=== PATIENT | female | born 1935 | race Caucasian/White ===

== ENCOUNTER 2017-11-14 11:42 | Emergency (ER) | payer MEDICARE, BC ==
[~2017-11-14] VITALS: Ht 165.1 cm; Wt 86.2 kg
[~2017-11-14 11:42] MED LIST: ASPI81EC PO; HYDCHL25 PO; Hydrochlorothia25 MG PO; LEVSOD25 PO; LEVSOD50; LISI20 PO; MAGOXI400 PO; MULVITMIND PO; NADO20 PO; OMEP20ER PO; POTCHL10ER PO; Procrit2000 UNIT/ IJ; SIMV10 PO; Ultram50 MG PO
[2017-11-14] MEDS ORDERED: AMLO5 PO (12:33)
[2017-11-14] MEDS ORDERED: Dyazide 37.5-21 EACH PO (12:34)
[2017-11-14 12:41] LABS: BASOPHILS ABSOLUTE AUTO 0.02 K/mm3 (0.00-0.23); BASOPHILS PERCENT AUTO 0 % (0-2); EOSINOPHILS ABSOLUTE AUTO 0.21 K/mm3 (0.00-0.68); EOSINOPHILS PERCENT AUTO 4 % (0-6); Hematocrit 33.4 % (33.0-51.0); IMMATURE GRAN ABSOLUTE AUTO 0.04 K/mm3 (0.00-0.10); IMMATURE GRAN PERCENT AUTO 1 % (0-1); LYMPHOCYTES ABSOLUTE AUTO 1.03 K/mm3 (0.84-5.20); LYMPHOCYTES PERCENT AUTO 18 % (21-46); MONOCYTES ABSOLUTE AUTO 0.61 K/mm3 (0.16-1.47); MONOCYTES PERCENT AUTO 10 % (4-13); Mean Corpuscular HGB Conc 35.9 g/dL (31.5-36.5); Mean Corpuscular Volume 97 fL (80-100); Mean Platelet Volume 10.3 fL (9.1-12.4); NEUTROPHILS ABSOLUTE AUTO 3.95 K/mm3 (1.96-9.15); NEUTROPHILS PERCENT AUTO 67 % (41-73); Platelet Count 53 K/mm3 (150-400); RDW Coefficient Variation 12.5 % (11.7-14.2); RDW Standard Deviation 44.9 fL (35.1-46.3); Red Blood Cell Count 3.43 M/mm3 (3.80-5.20); White Blood Cell Count 5.86 K/mm3 (4.00-11.30)
[2017-11-14 12:51] LABS: Alanine Aminotransfer (ALT/SGP 14 U/L (12-78); Albumin/Globulin Ratio 0.8 (0.8-1.8); Alk Phos 90 U/L (50-136); Anion Gap 7 mmol/L (6-16); Aspartate Aminotrans (AST/SGOT 22 U/L (12-37); Bilirubin, Total 2.2 mg/dL (0.1-1.0); Blood Urea Nitrogen 21 mg/dL (8-24); Bun/Creatinine Ratio 27.9 (12.0-20.0); CO2, Blood 28 mmol/L (21-32); Calcium, Blood 8.6 mg/dL (8.5-10.1); Chloride, Blood 103 mmol/L (98-108); Creatinine, Blood 0.75 mg/dL (0.40-1.00); Globulin, Blood 3.8 g/dL (2.2-4.0); Glomerular Filtration Rate >60 (60-); Glucose, Blood 111 mg/dL (70-99); Potassium, Blood 3.5 mmol/L (3.5-5.5); Sodium, Blood 138 mmol/L (136-145); Total Protein, Blood 6.8 g/dL (6.4-8.2)
== END 2017-11-14 14:00 | disposition home or self-care (01) ==
LOC: ER 11:42
PROVIDERS: Physician Assistant
DX: J40 Bronchitis, not specified as acute or chronic (principal); I10 Essential (primary) hypertension; E11.9 Type 2 diabetes mellitus without complications; Z88.5 Allergy status to narcotic agent; Z88.8 Allergy status to other drugs, medicaments and biological substances; Z79.899 Other long term (current) drug therapy
CPT/HCPCS: 36415; 71046; 80053; 85025; 93005; 93010; 99283

== ENCOUNTER 2019-04-26 15:37 | Inpatient (IN) | payer MEDICARE, BC ==
[~2019-04-26] VITALS: Ht 165.1 cm; Wt 107.8 kg
[~2019-04-26 15:37] MED LIST changes: +AMLO5 PO; +Dyazide 37.5-21 EACH PO
[2019-04-26] MEDS ORDERED: RIFA550T2 (16:01)
[2019-04-26] MEDS ORDERED: MYRBETRIQ25 MG PO (16:01)
[2019-04-26] MEDS ORDERED: TOLT4 PO (16:02)
[2019-04-26] MEDS ORDERED: Omega-31000 MG PO (16:02)
[2019-04-26 16:16] LABS: BASOPHILS ABSOLUTE AUTO 0.02 K/mm3 (0.00-0.23); BASOPHILS PERCENT AUTO 0 % (0-2); EOSINOPHILS ABSOLUTE AUTO 0.07 K/mm3 (0.00-0.68); EOSINOPHILS PERCENT AUTO 1 % (0-6); Hemoglobin 12.5 g/dL (11.5-16.0); IMMATURE GRAN ABSOLUTE AUTO 0.03 K/mm3 (0.00-0.10); IMMATURE GRAN PERCENT AUTO 1 % (0-1); LYMPHOCYTES ABSOLUTE AUTO 0.66 K/mm3 (0.84-5.20); LYMPHOCYTES PERCENT AUTO 10 % (21-46); MONOCYTES ABSOLUTE AUTO 0.48 K/mm3 (0.16-1.47); MONOCYTES PERCENT AUTO 8 % (4-13); Mean Corpuscular HGB Conc 35.7 g/dL (31.5-36.5); Mean Corpuscular Volume 101 fL (80-100); Mean Platelet Volume 10.6 fL (9.1-12.4); NEUTROPHILS ABSOLUTE AUTO 5.08 K/mm3 (1.96-9.15); NEUTROPHILS PERCENT AUTO 80 % (41-73); Platelet Count 51 K/mm3 (150-400); RDW Coefficient Variation 12.7 % (11.7-14.2); RDW Standard Deviation 46.5 fL (35.1-46.3); Red Blood Cell Count 3.47 M/mm3 (3.80-5.20); White Blood Cell Count 6.34 K/mm3 (4.00-11.30)
[2019-04-26 16:35] LABS: Alanine Aminotransfer (ALT/SGP 14 U/L (12-78); Albumin, Blood 3.1 g/dL (3.4-5.0); Albumin/Globulin Ratio 0.9 (0.8-1.8); Alk Phos 96 U/L (50-136); Anion Gap 6 mmol/L (6-16); Aspartate Aminotrans (AST/SGOT 44 U/L (12-37); Blood Urea Nitrogen 13 mg/dL (8-24); Bun/Creatinine Ratio 16.3 (12.0-20.0); CO2, Blood 24 mmol/L (21-32); Calcium, Blood 9.2 mg/dL (8.5-10.1); Chloride, Blood 108 mmol/L (98-108); Globulin, Blood 3.6 g/dL (2.2-4.0); Glomerular Filtration Rate >60 (60-); Glucose, Blood 142 mg/dL (70-99); Potassium, Blood 3.7 mmol/L (3.5-5.5); Sodium, Blood 138 mmol/L (136-145); Total Protein, Blood 6.7 g/dL (6.4-8.2)
[2019-04-26 17:15] LABS: International Normalized Ratio 1.17; Prothrombin Time Results 12.2 Sec (9.7-11.5)
[2019-04-26 17:52] LABS: Source, Urine Clean Catch
[2019-04-26 17:55] LABS: Bilirubin, Urine Neg (Neg); Blood, Urine 4+ (Neg); Glucose Qualitative, Urine Neg (Neg); Ketones, Urine Neg (Neg); Leukocyte Esterase, Urine 3+ (Neg); Nitrite, Urine Pos (Neg); Protein, Urine 1+ (Neg); Specific Gravity, Urine 1.005 (1.003-1.022); Urobilinogen, Urine NORM (Normal)
[2019-04-26 18:05] LABS: Appearance, Urine Hazy (Clear); Color, Urine Yellow (P-Yellow)
[2019-04-26 18:23] LABS: Bacteria Many /hpf; Red Blood Cells, Urine 25-50 /hpf (0-2); Squamous Epithelial Cells Few /hpf (Few); White Blood Cells, Urine TNTC /hpf (0-5)
[2019-04-26] MEDS ORDERED: THERA1 EACH PO (22:56)
[2019-04-26] MEDS ORDERED: Gas Relief80 MG PO (22:57)
--- NOTE | 2019-04-27 04:42 | NUR ---
SHIFT SUMMARY PT ER ADMIT THIS SHIFT FOR UTI. PT A/OX4, PLESANT AND COOPERATIVE. ADMISSION COMPLETE WITH PT SON AT BEDSIDE, PT ABLE TO ANSWER MOST QUESTIONS REGARDING HER HISTORY. MEDICATION RECONCILIATION MOSTLY COMPLETE. PT SON WOULD LIKE TO BRING HER PILL BOTTLES TOMORROW TO VERIFY THAT THE DOSAGES ON SOME OF THE MEDICATIONS ON HER REC ARE CORRECT. WILL NOTIFY DAY RN FOR FOLLOW UP. PT HAS RECEIVED IV ROCEPHIN IN THE ER, SHE IS RECEIVING FLUIDS AT 75 ML/HR AT THIS TIME. PT UP WITH 1 PA TO BATHROOM, BUT HAS A SLOW UNSTEADY GAIT. PT DENIES PAIN. RESTFUL NIGHT. WILL CONTINUE TO MONITOR AND REPORT TO ONCOMING RN.
[2019-04-27 05:23] LABS: BASOPHILS ABSOLUTE AUTO 0.01 K/mm3 (0.00-0.23); BASOPHILS PERCENT AUTO 0 % (0-2); EOSINOPHILS ABSOLUTE AUTO 0.07 K/mm3 (0.00-0.68); EOSINOPHILS PERCENT AUTO 2 % (0-6); Hematocrit 29.1 % (33.0-51.0); Hemoglobin 10.2 g/dL (11.5-16.0); IMMATURE GRAN ABSOLUTE AUTO 0.02 K/mm3 (0.00-0.10); IMMATURE GRAN PERCENT AUTO 0 % (0-1); LYMPHOCYTES PERCENT AUTO 17 % (21-46); MONOCYTES ABSOLUTE AUTO 0.47 K/mm3 (0.16-1.47); MONOCYTES PERCENT AUTO 10 % (4-13); Mean Corpuscular HGB 34.6 pg (26.0-34.0); Mean Corpuscular HGB Conc 35.1 g/dL (31.5-36.5); Mean Corpuscular Volume 99 fL (80-100); Mean Platelet Volume 11.1 fL (9.1-12.4); NEUTROPHILS ABSOLUTE AUTO 3.27 K/mm3 (1.96-9.15); NEUTROPHILS PERCENT AUTO 71 % (41-73); RDW Coefficient Variation 12.9 % (11.7-14.2); RDW Standard Deviation 45.8 fL (35.1-46.3); Red Blood Cell Count 2.95 M/mm3 (3.80-5.20); White Blood Cell Count 4.64 K/mm3 (4.00-11.30)
[2019-04-27 05:30] LABS: Platelet Count 42 K/mm3 (150-400)
[2019-04-27 05:34] LABS: International Normalized Ratio 1.28; Prothrombin Time Results 13.3 Sec (9.7-11.5)
[2019-04-27 05:37] LABS: Magnesium, Blood 1.5 mg/dL (1.6-2.4)
[2019-04-27 05:38] LABS: Alanine Aminotransfer (ALT/SGP 15 U/L (12-78); Albumin, Blood 2.6 g/dL (3.4-5.0); Albumin/Globulin Ratio 0.8 (0.8-1.8); Alk Phos 78 U/L (50-136); Anion Gap 8 mmol/L (6-16); Aspartate Aminotrans (AST/SGOT 34 U/L (12-37); Bilirubin, Total 1.8 mg/dL (0.1-1.0); Blood Urea Nitrogen 13 mg/dL (8-24); Bun/Creatinine Ratio 17.5 (12.0-20.0); CO2, Blood 25 mmol/L (21-32); Calcium, Blood 8.3 mg/dL (8.5-10.1); Chloride, Blood 110 mmol/L (98-108); Creatinine, Blood 0.74 mg/dL (0.40-1.00); Globulin, Blood 3.2 g/dL (2.2-4.0); Glomerular Filtration Rate >60 (60-); Glucose, Blood 193 mg/dL (70-99); Sodium, Blood 143 mmol/L (136-145); Total Protein, Blood 5.8 g/dL (6.4-8.2)
[2019-04-27] MEDS ORDERED: Dyazide 37.5-21 EACH PO (10:11)
[2019-04-27] MEDS ORDERED: Magnesium500 M1 PO (10:14)
--- NOTE | 2019-04-27 10:56 | NUR ---
IV CLARIFICATION RIGHT IV IS IN THE AC NOT THE WRIST
--- NOTE | 2019-04-27 16:30 | NUR ---
PT IS A/OX3, PLEASANT AND COOPERATIVE, THE PT IS UP WITH MINIMAL ASSIST TO THE BSC AND TO [facility], TODAY THE PT AMBULATED OUT INTO THE SORTO WITH THE PHYSICAL THERAPIST, USEING THE FWW APPROPIATLY, THE PT DENIED ANY PAIN T/O THE SHIFT, THE PTS SON WAS AT THE BEDSIDE FOR MOST OF THE DAY, THE PT WAS UP INTO THE CHAIR FOR BREAKFAST, CALL LIGHT IN REACH, BED ALARM ON , WILL CONTINUE TO MONITOR AND ASSESS FOR CHANGES
--- NOTE | 2019-04-28 04:36 | NUR ---
AOx3. 96% on RA. No c/o pain or nausea. No calls from tele, sinus kindra/1st degree HB. L FA IV is SL, R AC IV has NS infusing @ 75ml/hr. Awaiting culture results. 1 assist to BSC, tolerates well. Q2 repo, but pt repos herself and is up to the bathroom frequently. SCDs off for the night b/c pt couldn't sleep. VSS. Pt hopes to return home today.
[2019-04-28 05:18] LABS: Hematocrit 31.6 % (33.0-51.0); Hemoglobin 11.2 g/dL (11.5-16.0); Mean Corpuscular HGB 35.7 pg (26.0-34.0); Mean Corpuscular HGB Conc 35.4 g/dL (31.5-36.5); Mean Corpuscular Volume 101 fL (80-100); Mean Platelet Volume 10.8 fL (9.1-12.4); RDW Coefficient Variation 12.9 % (11.7-14.2); RDW Standard Deviation 47.6 fL (35.1-46.3); Red Blood Cell Count 3.14 M/mm3 (3.80-5.20); White Blood Cell Count 4.22 K/mm3 (4.00-11.30)
[2019-04-28 05:22] LABS: Platelet Count 46 K/mm3 (150-400)
[2019-04-28 05:40] LABS: Anion Gap 6 mmol/L (6-16); Blood Urea Nitrogen 12 mg/dL (8-24); Bun/Creatinine Ratio 16.8 (12.0-20.0); CO2, Blood 25 mmol/L (21-32); Calcium, Blood 8.6 mg/dL (8.5-10.1); Chloride, Blood 114 mmol/L (98-108); Creatinine, Blood 0.71 mg/dL (0.40-1.00); Glomerular Filtration Rate >60 (60-); Glucose, Blood 131 mg/dL (70-99); Magnesium, Blood 1.6 mg/dL (1.6-2.4); Potassium, Blood 3.7 mmol/L (3.5-5.5); Sodium, Blood 145 mmol/L (136-145)
--- NOTE | 2019-04-28 16:43 | NUR ---
SHIFT SUMMARY PT WAS RESTING QUIETLY, FOWLERS, DURING SHIFT REPORT. IVF'S INFUSING TO RAC; FREQUENTLY OCCLUDING. RAC WRAPPED WITH CLOTH TO STABLIZE, WHICH HELPED UNTIL EATING BREAKFAST. DR LYNCH IN TO SEE PT, NEW ORDERS RECEIVED. PT'S SON COME IN LATER TO SEE PT, DR LYNCH NOTIFIED AND RETURNED TO . UPDATE GIVEN TO PT'S SON, WHO IS CAREGIVER WHEN PT AT HOME. PT IS FORGETFUL AT TIMES, BUT PLEASANT. PT ASSISTED UP TO BTHRM FOR SHOWER. YEAST FOUND IN ABD SKIN FOLDS. SKIN CLEANED. DR LYNCH NOTIFIED FOR NYSTATIN. PT ASSISTED BACK INTO BED. RESTING QUIETLY AT THIS TIME. NO C/O. CALL LT IN REACH. BED ALARM ON FOR SAFETY.
--- NOTE | 2019-04-29 04:03 | NUR ---
SHIFT SUMMARY PT ADMITTED WITH UTI. PT WITH CRITICAL PLATELET COUNT OF 46 YESTERDAY. DNR. ADA DIET. TELE-NSR WITH OCCATIONS PVC AT A RATE OF 66 PER GEAR HOBBER SET UP OPERATOR. 20G IV TO R AC. TAKES MEDICATIONS WHOLE. 1 PERSON ASSIST WITH TRANSFERS AND IS ABLE TO WALK TO THE BR. PT WITH REDNESS AND FOUL ODOR NOTED TO ABD FOLDS, NYSTATIN POWDER APPLIED. THE PTS SON WAS IN ROOM WITH PT UNTIL JOHN. SON STATED THAT THE PT APPEARED TO GET VERY CONFUSED SO HE DECIDED TO STAY LONGER. THIS NURSE ENTERED ROOM AND PT APPEARED TO HAVE SOME MILD INTERMITTENT FORGETFULNESS BUT DID NOT APPEAR CONFUSED. AFTER SON LEFT, PT WENT TO SLEEP AND APPEARS TO HAVE ONLY WOKE X1 TO VOID. PT DID SET OFF BED ALARM SO NOT APPEAR TO USE CALL LIGHT APPROPRIATELY. PT APPEARS TO BE SLEEPING COMFORTABLY AT THIS TIME WITH NO APPARENT SIGNS OF ACUTE DISTRESS. BED ALARM FOR SAFETY.
[2019-04-29 04:51] LABS: Anion Gap 7 mmol/L (6-16); Blood Urea Nitrogen 13 mg/dL (8-24); Bun/Creatinine Ratio 18.7 (12.0-20.0); CO2, Blood 25 mmol/L (21-32); Calcium, Blood 8.8 mg/dL (8.5-10.1); Chloride, Blood 110 mmol/L (98-108); Creatinine, Blood 0.69 mg/dL (0.40-1.00); Glomerular Filtration Rate >60 (60-); Glucose, Blood 115 mg/dL (70-99); Magnesium, Blood 1.5 mg/dL (1.6-2.4); Potassium, Blood 3.7 mmol/L (3.5-5.5); Sodium, Blood 142 mmol/L (136-145)
[2019-04-29] MEDS ORDERED: LEVFLO500 PO (10:15)
--- NOTE | 2019-04-29 10:52 | NUR ---
PT DISCHAREGED THE PT AND HER SON VERBALIZED UNDERSTANDING OF THE DC INSTRUCTIONS, PRESCRIPTION FAXED TO [facility] REQUESTED, THE PT WAS TRANSFERED VIA WHEELCHAIR ACCOMPANIED BY THE BUSINESS AND FINANCIAL COUNSEL AND HER SON, THE PT APPEARED TO BE BREATHING EASILY ON RA
== END 2019-04-29 10:53 | disposition home or self-care (01) | DRG 689 ==
LOC: ER 15:37 → MEDS 21:30
PROVIDERS: Emergency Medicine; Internal Medicine; Nurse Practitioner Acute Care; ADMIT Internal Medicine
DX: N39.0 Urinary tract infection, site not specified (principal); G92 Toxic encephalopathy; E11.9 Type 2 diabetes mellitus without complications; I10 Essential (primary) hypertension; E87.6 Hypokalemia; E83.42 Hypomagnesemia; D69.6 Thrombocytopenia, unspecified; K75.81 Nonalcoholic steatohepatitis (NASH); E03.9 Hypothyroidism, unspecified; K74.60 Unspecified cirrhosis of liver; K21.9 Gastro-esophageal reflux disease without esophagitis; Z68.33 Body mass index [BMI] 33.0-33.9, adult; Z85.038 Personal history of other malignant neoplasm of large intestine; Z66 Do not resuscitate; E66.01 Morbid (severe) obesity due to excess calories; B95.61 Methicillin susceptible Staphylococcus aureus infection as the cause of diseases classified elsewhere
CPT/HCPCS: 36415; 80048; 80053; 81001; 82140; 83690; 83735; 84443; 85025; 85027; 85610; 87040; 87077; 87086; 87186; 93005; 93010; 96361; 96365; 97110; 97116; 97162; 97165; 97530; 99285-25; J0360; J0696; J3370; J7030; J7050

== ENCOUNTER 2019-07-20 04:09 | Inpatient (IN) | payer MEDICARE, BC ==
[~2019-07-20] VITALS: Ht 165.1 cm; Wt 106.1 kg
[~2019-07-20 04:09] MED LIST changes: +Gas Relief80 MG PO; +LEVFLO500 PO; +MYRBETRIQ25 MG PO; +Magnesium500 M1 PO; +Omega-31000 MG PO; +RIFA550T2; +THERA1 EACH PO; +TOLT4 PO
[2019-07-20] MEDS ORDERED: Alprazolam1 MG PO (04:29)
[2019-07-20 04:50] LABS: Source, Urine Catheter
[2019-07-20 04:55] LABS: Appearance, Urine Hazy (Clear); Bilirubin, Urine Neg (Neg); Blood, Urine 2+ (Neg); Color, Urine Yellow (P-Yellow); Glucose Qualitative, Urine Neg (Neg); Ketones, Urine Neg (Neg); Leukocyte Esterase, Urine 3+ (Neg); Nitrite, Urine Neg (Neg); Protein, Urine 1+ (Neg); Urobilinogen, Urine NORM (Normal); pH, Urine 6.5 (5.0-8.0)
[2019-07-20 05:05] LABS: Bacteria Many /hpf; Squamous Epithelial Cells Rare /hpf (Few); White Blood Cells, Urine TNTC /hpf (0-5)
[2019-07-20 06:15] LABS: BASOPHILS ABSOLUTE AUTO 0.02 K/mm3 (0.00-0.23); BASOPHILS PERCENT AUTO 0 % (0-2); EOSINOPHILS ABSOLUTE AUTO 0.16 K/mm3 (0.00-0.68); EOSINOPHILS PERCENT AUTO 2 % (0-6); Hematocrit 34.9 % (33.0-51.0); Hemoglobin 12.4 g/dL (11.5-16.0); IMMATURE GRAN ABSOLUTE AUTO 0.04 K/mm3 (0.00-0.10); IMMATURE GRAN PERCENT AUTO 1 % (0-1); LYMPHOCYTES ABSOLUTE AUTO 0.75 K/mm3 (0.84-5.20); LYMPHOCYTES PERCENT AUTO 11 % (21-46); MONOCYTES ABSOLUTE AUTO 0.51 K/mm3 (0.16-1.47); MONOCYTES PERCENT AUTO 8 % (4-13); Mean Corpuscular HGB 35.8 pg (26.0-34.0); Mean Corpuscular HGB Conc 35.5 g/dL (31.5-36.5); Mean Corpuscular Volume 101 fL (80-100); Mean Platelet Volume 10.6 fL (9.1-12.4); NEUTROPHILS ABSOLUTE AUTO 5.13 K/mm3 (1.96-9.15); NEUTROPHILS PERCENT AUTO 78 % (41-73); Platelet Count 60 K/mm3 (150-400); RDW Coefficient Variation 12.9 % (11.7-14.2); RDW Standard Deviation 47.3 fL (35.1-46.3); Red Blood Cell Count 3.46 M/mm3 (3.80-5.20); White Blood Cell Count 6.61 K/mm3 (4.00-11.30)
[2019-07-20 06:35] LABS: Alanine Aminotransfer (ALT/SGP 16 U/L (12-78); Albumin, Blood 3.4 g/dL (3.4-5.0); Albumin/Globulin Ratio 0.8 (0.8-1.8); Alk Phos 106 U/L (50-136); Anion Gap 7 mmol/L (6-16); Aspartate Aminotrans (AST/SGOT 34 U/L (12-37); Bilirubin, Total 1.8 mg/dL (0.1-1.0); Blood Urea Nitrogen 25 mg/dL (8-24); Bun/Creatinine Ratio 23.8 (12.0-20.0); CO2, Blood 26 mmol/L (21-32); Calcium, Blood 9.5 mg/dL (8.5-10.1); Chloride, Blood 110 mmol/L (98-108); Creatinine, Blood 1.05 mg/dL (0.40-1.00); Glomerular Filtration Rate 53 (60-); Glucose, Blood 140 mg/dL (70-99); Magnesium, Blood 1.6 mg/dL (1.6-2.4); Potassium, Blood 3.7 mmol/L (3.5-5.5); Sodium, Blood 143 mmol/L (136-145); Total Protein, Blood 7.4 g/dL (6.4-8.2); Troponin I <0.015 ng/mL (0.000-0.040)
--- NOTE | 2019-07-20 17:57 | NUR ---
SHIFT SUMMARY ED ADMIT AT LUNCHTIME TODAY. PATIENT SETTLED INTO ROOM. PATIENT PLEASANTLY CONFUSED. DENIES PAIN, NAUSEA, AND SHORTNESS OF BREATH. PATIENT UP IN RECLINER THIS AFTERNOON. PT WORKED WITH PATIENT, PATIENT UP ONE ASSIST W/GAIT BELT AND FWW. PATIENT NEEDS FREQUENT PROMPTING. CALL LIGHT IN REACH.
--- NOTE | 2019-07-20 23:07 | NUR ---
PATIENT CONFUSED AND PULLED PIV. NEW PIV PLACED AND NS AT 100mL/HR RESTARTED.
--- NOTE | 2019-07-20 23:09 | NUR ---
PATIENT BED ALARM ACTIVATED X TWO. SWINGING LEGS OFF SIDE OF BED. PATIENT REPORTS SHE DOESN'T KNOW WHY. PATIENT BACK INTO BED AND ALARM ACTIVATED.
--- NOTE | 2019-07-21 00:02 | NUR ---
BEGINNING SHIFT SUMMARY ASSUMED CARE OF PT AT 1900. PT SITTING IN CHAIR WATCHING TV WITH HER SON. PT IS ALERT TO FAMILY, PT IS CONFUSED, PT PULLED OUT HER IV AT 1030 AND CONTINUOUSLY TRIES TO GET OUT OF BED. HEART SONDS REGULAR, PERIPHERAL PULSES STRONG, NEW IV IN HER L HAND, INF NS @100ML/HR. FIN INSPIRATORY CRACKLES BLL LUNGS, DENIES SOB, RA. BOWEL TONES HYPERACTIVE, NONTENDER, PT HAS URINARY URGENCY AND FREGUENCY, PT USES THE BED SIDE COMMODE FOR SAFETY WITH FFW AND GAITBELT. GROIN AREA IS REDDENED, HOSPITALIST CALLED AND NYASTATIN CREAM WAS ORDERED. PT SON IN VERY INVOLVED WITH THE PTS CARE, PHONE NUMBER ON THE BOARD. CALL LIGHT IN REACH, BED IN LOWEST POSTION, BED ALARM ON, WILL CONTINUE TO MONITOR.
--- NOTE | 2019-07-21 02:54 | NUR ---
PATIENT BED EXIT ALARM. PATIENT CONFUSED WITH FEET HANGING OUT OF BED. PATIENT REPORTS SHE DOES NOT KNOW WHY AND DOES NOT NEED TO USE BSC. PATIENT ORIENTED AND REPOSITIONED BACK INTO BED.
--- NOTE | 2019-07-21 03:02 | NUR ---
BED EXIT ALARM WITH FEET HANGING OFF BED. PATIENT CONFUSED AND UNABLE TO REORIENT AT THIS TIME. PATIENT BACK IN BED AND ALARM ACTIVATED.
[2019-07-21 05:10] LABS: BASOPHILS ABSOLUTE AUTO 0.02 K/mm3 (0.00-0.23); BASOPHILS PERCENT AUTO 0 % (0-2); EOSINOPHILS ABSOLUTE AUTO 0.19 K/mm3 (0.00-0.68); EOSINOPHILS PERCENT AUTO 4 % (0-6); Hematocrit 32.4 % (33.0-51.0); Hemoglobin 11.4 g/dL (11.5-16.0); IMMATURE GRAN ABSOLUTE AUTO 0.03 K/mm3 (0.00-0.10); IMMATURE GRAN PERCENT AUTO 1 % (0-1); LYMPHOCYTES ABSOLUTE AUTO 1.03 K/mm3 (0.84-5.20); LYMPHOCYTES PERCENT AUTO 20 % (21-46); MONOCYTES ABSOLUTE AUTO 0.46 K/mm3 (0.16-1.47); MONOCYTES PERCENT AUTO 9 % (4-13); Mean Corpuscular HGB 36.1 pg (26.0-34.0); Mean Corpuscular HGB Conc 35.2 g/dL (31.5-36.5); Mean Corpuscular Volume 103 fL (80-100); Mean Platelet Volume 10.8 fL (9.1-12.4); NEUTROPHILS ABSOLUTE AUTO 3.38 K/mm3 (1.96-9.15); NEUTROPHILS PERCENT AUTO 66 % (41-73); Platelet Count 56 K/mm3 (150-400); RDW Coefficient Variation 12.8 % (11.7-14.2); RDW Standard Deviation 47.8 fL (35.1-46.3); Red Blood Cell Count 3.16 M/mm3 (3.80-5.20); White Blood Cell Count 5.11 K/mm3 (4.00-11.30)
[2019-07-21 05:30] LABS: Alanine Aminotransfer (ALT/SGP 16 U/L (12-78); Albumin/Globulin Ratio 0.8 (0.8-1.8); Alk Phos 90 U/L (50-136); Anion Gap 8 mmol/L (6-16); Aspartate Aminotrans (AST/SGOT 33 U/L (12-37); Bilirubin, Total 2.1 mg/dL (0.1-1.0); Blood Urea Nitrogen 18 mg/dL (8-24); Bun/Creatinine Ratio 20.8 (12.0-20.0); CO2, Blood 24 mmol/L (21-32); Calcium, Blood 8.9 mg/dL (8.5-10.1); Chloride, Blood 112 mmol/L (98-108); Creatinine, Blood 0.87 mg/dL (0.40-1.00); Globulin, Blood 3.8 g/dL (2.2-4.0); Glomerular Filtration Rate >60 (60-); Glucose, Blood 138 mg/dL (70-99); Magnesium, Blood 1.5 mg/dL (1.6-2.4); Potassium, Blood 3.6 mmol/L (3.5-5.5); Sodium, Blood 144 mmol/L (136-145); Total Protein, Blood 6.8 g/dL (6.4-8.2)
--- NOTE | 2019-07-21 05:49 | NUR ---
END SHIFT SUMMARY NO CONTINUED TO BE CONFUSED DURING THE NIGHT. SEVERAL TIMES SHE WOULD SIT ON THE EDGE OF THE BED AND SAY THAT SHE JUST WAS LOOKING AROUND, AND THEN WOULD LAY BACK DOWN AND SLEEP. PT WAS INCONTINENT DURING THE WHOLE NIGHT. IV STILL INTACT. NYASTATIN CREAM ORDERED FOR PT [place] AREA. CALL LIGHT IN REACH, BED IN LOWEST POSITION, BED ALARM ON, WILL CONTINUE TO MONITOR UNTIL DAYSHIFT NURSE ARRIVES.
--- NOTE | 2019-07-21 17:23 | NUR ---
SHIFT SUMMARY PT AWAKE DURING SHIFT REPORT, RESTING QUIETLY. UP TO CHAIR AT START OF SHIFT AND UNTIL AFTER BREAKFAST. 1P ASSIST USING GAITBELT AND FWW. PT ABLE TO FEED HERSELF THRU OUT THE DAY WITH SM AMT OF ASSIST WITH SET UP. PER SHIFT REPORT, PT UNABLE TO FEED HERSELF LAST NIGHT, BUT POSSIBLY D/T AMMONIA LEVEL. LACTULOSE STARTED TODAY. PT'S SON IN THIS AM FOR SHORT WHILE, REPORTED THAT HE WOULD RETURN THIS EVENING. PT ABLE TO WORK WITH PT TODAY. UP TO BSC TO VOID, SETTING OFF BED ALARM. PT DOES NOT CALL. PT IN CHAIR AT BS EATING DINNER AT THIS TIME. CHAIR ALARM ON.
--- NOTE | 2019-07-22 | NUR ---
BGINNING SHIFT SUMMARY ASSUMED CARE OF PT AT 1900. PT WAS SITTING IN HER CHAIR TALKING TO HER SON. PT IS MORE ALERT AND ORIENTED TODAY, TO PLACE AND SITUATION AND ABLE TO FOLLOW COMMANDS. HEART SOUNDS IRREGULAR, PERIPHERAL PULSES STRONG, EDEMA IN HER BLE +4, IV INFUSING IN HER L WRIST NS @ 100ML/HR. FINE CRACLKES AT THE BASES, DENIES SOB/ DYSPNEA. BOWEL TONES HYPERACITVE. PT WAS REPORTED TO BE CONTINENT ALL MORNING. PT IS CURRENTLY SLEEPING IN BED. CALL LIGHT IN REACH, BED IN LOWEST POSITION, BED ALARM ON, WILL CONTINUE TO MONITOR.
--- NOTE | 2019-07-22 05:41 | NUR ---
END SHIFT SUMMARY NO ACUTE CHANGES NOTED THROUGHOUT THE NIGHT. PT SLEPT MOST OF THIE NIGHT, DID NOT USE HER CALL LIGHT APPROPIATLY TO USE THE BATHROOM. PT IS STILL ALERT AND ORIENTED 2X. PT IS CURRENTLY SLEEPING IN HER ROOM. CALL LIGHT IN REACH, BED IN LOWEST POSITION, BED ALARM ON, WILL CONTINUE TO MONITOR UNTIL DAYSHIFT NURSE ARRIVES.
--- NOTE | 2019-07-22 14:20 | NUR ---
SHIFT SUMMARY NO ACUTE CHANGES TO PRESENT THIS SHIFT. PT AWAKE DURING SHIFT REPORT, ATTEMPTING TO GET OOB NEEDING TO VOID. PT ASSISTED UP TO BSC USING 2P ASSIST. PT DOES NOT USE CALL LT, BUT HAS BEEN CONTINENT OF BOWEL AND BLADDER. PT LATER ASSISTED UP AGAIN TO BSC DURING BREAKFAST HAVING A DOUBLE EXTRA LRG BM. PT REPORTED AFTER HAVING BOWEL SX THAT HER BM'S WERE MUCH LARGER IN SIZE. PT CONTINUES TO HAVE CLEAR MENTATION FOR BASELINE. MOBILITY HAS CONTINUED TO IMPROVED; ABLE TO USE FWW WITH 1P SBA ASSIST. PT HAS BEEN ABLE TO FEED HERSELF IF ASSISTED WITH SET UP AND OPENING CONTAINERS. NO C/O PAIN. DENIES NEEDS UNLESS NEEDING TO VOID. DR BROCK IN TO SEE PT THIS AM. NEW ORDERS TO D/C LACTULOSE PT IS TAKING HOME MEDICATION RIFAXIMIN. NO FURTHER CHANGES TO REPORT. CALL LT IN REACH.
--- NOTE | 2019-07-23 04:03 | NUR ---
SHIFT SUMMARY PATIENT MENTATION HAS IMPROVED SINCE LAST NOCX SHIFT. PATIENT ABLE TO HOLD CONVERSATION AND EXPRESS HER NEEDS. AXO X3 AND NOT IMPULSIVE WITH BED EXITS. ONE PERSON ASSIST TO BSC. PIV REMAINS INTACT. NS INFUSING AT 100 mL/HR. VSS/AFEBRILE. DENIES PAIN, SOB, AND N/V. SON PRESENT FIRST PART OF SHIFT. CALL LIGHT IN REACH. BED IN LOWEST POSITION. WILL CONTINUE TO MONITOR UNTIL DAY SHIFT NURSE ASSUMES CARE.
[2019-07-23] MEDS ORDERED: CEFU500T30 PO (12:08)
--- NOTE | 2019-07-23 13:08 | NUR ---
PT HAS BEEN A/O X 2-3 TODAY WITH MOMENETS OF CONFUSION. SHE SAT UP ON THE SIDE OF THE BED FOR BREAKFAST AND WAS A X 1 STAND BY [place]IST [place] [facility] [place] BEEN DCD HOME WITH HER SON. IV WAS DCD WITH NO ISSUE. ALL MEDS AND INSTRUCTIONS WERE REVIEWED WITH PT AND SON WHO BOTH VERBALIZE AN UNDERSTANDING. RX WERE FAXED TO PHARMACY OF CHOICE. ALL PERSONAL BELONGINGS SENT WITH PT AND PT IS STABLE UPON DC.
== END 2019-07-23 13:17 | disposition home or self-care (01) | DRG 689 ==
LOC: ER 04:09 → MEDS 07:46 → ENPENDDIS 07-23 11:08 → MEDS 07-23 13:17
PROVIDERS: Emergency Medicine; ADMIT Internal Medicine
DX: N39.0 Urinary tract infection, site not specified (principal); G92 Toxic encephalopathy; N17.9 Acute kidney failure, unspecified; E11.9 Type 2 diabetes mellitus without complications; I10 Essential (primary) hypertension; K75.81 Nonalcoholic steatohepatitis (NASH); K74.60 Unspecified cirrhosis of liver; G30.9 Alzheimer's disease, unspecified; F02.80 Dementia in other diseases classified elsewhere, unspecified severity, without behavioral disturbance, psychotic disturbance, mood disturbance, and anxiety; E03.9 Hypothyroidism, unspecified; B96.1 Klebsiella pneumoniae [K. pneumoniae] as the cause of diseases classified elsewhere; K21.9 Gastro-esophageal reflux disease without esophagitis; Z79.899 Other long term (current) drug therapy
CPT/HCPCS: 36415; 80053; 81001; 82140; 83735; 84484; 85025; 87077; 87086; 87186; 93005; 93010; 96365; 96372-59; 97110; 97116; 97161; 97530; 99285-25; J0696; J1650; J7030; P9612

== ENCOUNTER → 2019-11-25 | Outpatient (CLI) | payer MEDICARE, BC ==
[~2019-11-25] MED LIST changes: +Alprazolam1 MG PO; +CEFU500T30 PO
== END | disposition home or self-care (01) ==
LOC: LAB EV 17:17 → LAB SHORT 17:17
DX: N39.0 Urinary tract infection, site not specified (principal)
CPT/HCPCS: 87077; 87086; 87186

== ENCOUNTER → 2020-01-24 | Outpatient (CLI) | payer MEDICARE, BC | END | disposition home or self-care (01) | LOC: LAB SHORT 14:56 → LAB EV 14:56 | DX: N39.0 Urinary tract infection, site not specified (principal) | CPT/HCPCS: 87077; 87086; 87186 ==

== ENCOUNTER → 2021-01-09 | Outpatient (CLI) | payer MEDICARE, BC ==
[2021-01-09 12:03] LABS: Bilirubin, Urine Neg (Neg); Blood, Urine 5+ (Neg); Glucose Qualitative, Urine Neg (Neg); Ketones, Urine Neg (Neg); Leukocyte Esterase, Urine 2+ (Neg); Nitrite, Urine Neg (Neg); Protein, Urine 2+ (Neg); Specific Gravity, Urine 1.005 (1.003-1.022); Urobilinogen, Urine NORM (Normal)
[2021-01-09 12:14] LABS: Appearance, Urine Hazy (Clear); Color, Urine Yellow (P-Yellow); Red Blood Cells, Urine 25-50 /hpf (0-2); Squamous Epithelial Cells Rare /hpf (Few)
[2021-01-09 12:15] LABS: Bacteria Few /hpf
== END | disposition home or self-care (01) ==
LOC: LAB 10:55 → LAB SHORT 10:55
PROVIDERS: Family Medicine
DX: R30.0 Dysuria (principal)
CPT/HCPCS: 81001; 87077; 87086; 87186